=== PATIENT | male | born 1985 | race African-American/Black ===

== ENCOUNTER 2019-08-28 21:56 | Emergency (ER) | payer SELFPAY ==
[~2019-08-28 21:56] MED LIST: EPINEPHRINE INJ 1 MG/10 ML DISP.SYRIN ONE
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
== END 2019-08-28 22:40 | disposition expired ==
LOC: EDBD → ER 21:56
DX: S21.139A Puncture wound without foreign body of unspecified front wall of thorax without penetration into thoracic cavity, initial encounter (principal); S31.139A Puncture wound of abdominal wall without foreign body, unspecified quadrant without penetration into peritoneal cavity, initial encounter; S51.831A Puncture wound without foreign body of right forearm, initial encounter; W34.00XA Accidental discharge from unspecified firearms or gun, initial encounter; I46.9 Cardiac arrest, cause unspecified
CPT/HCPCS: 99291; 92950; 36680; 32551; J0171